=== PATIENT | female | born 1990 ===

== ENCOUNTER 2019-07-07 07:05 | Day surgery (SDC) | payer OTHER ==
--- NOTE | 2019-07-05 22:17 | Pre-Procedure Note/Attestation ---
Pre-Procedure Note/Attestation Complete Prior to Procedure Planned Procedure: right Procedure Narrative: Excise submental tumor with multilayer closure Indications for Procedure Pre-Operative Diagnosis: Right submental tumor Attestation I attest that I discussed the nature of the procedure; its benefits; risks and complications; and alternatives (and the risks and benefits of such alternatives ), prior to the procedure, with the patient (or the patient's legal automobile rental representative). I attest that, if there was a reasonable possibility of needing a blood transfusion, the patient (or the patient's legal automobile rental representative) was given the [facility] standardized written summary, pursuant to the Yoseph Karel Blood Safety Act ([place] Health and Safety Code # 1645, as amended). I attest that I re-evaluated the patient just prior to the surgery and that there has been no change in the patient's H&P. Ryan Jacobs MD Jul 05, 2019 22:17
--- NOTE | 2019-07-05 22:18 | Brief Operative Note ---
Immediate Post Operative Note Operative Note Chief Complaint: Right submental tumor Pre-op Diagnosis: Right submental tumor Procedure: Excise right submental tumor with multilayer closure Post-op Diagnosis: same as pre-op Surgeon: Ryan Jacobs MD Marketing Assistant: none Additional Surgeons: none Anesthesiologist: Dr. Dodge Anesthesia: general Specimen: yes - right submental tumor Complications: none Condition: stable Fluids: D5LR Estimated Blood Loss: minimal Drains: none Packing: none Implant(s) used?: No Ryan Jacobs MD Jul 05, 2019 22:18
--- NOTE | 2019-07-05 22:30 | History and Physical ---
History & Physical (DB) History & Physical History & Physical Chief Complaint: Right submental tumor Reason for Hospitalization: outpt surgery History obtained from: Chart and Patient HPI: Ms. Portillo is a 28 year old female who presents with a growing tumor under her right chin. Past Medical History: unremarkable Social History: Single, no children Past Medical History: Deviated nasal septum, hypertrophied inferior turbinates, Stomach issues. Diagnosis: right submental tumor Past Surgical History: Endoscopy Occupational History: transport manager Smoking status: none Smokeless tobacco: none Alcohol use: social Drug use: none control/ protection: BCP Family History: HTN, acoustic neuroma Allergies:Sufla, Macrolides and Amoxicillin-all rashes Medications: BCP Review of Symptoms: General ROS: no weight loss or fever Psychological ROS: no depression or mood changes, no memory loss Ophthalmic ROS: no visual changes or eye irritation ENT ROS: no nasal congestion, hearing loss, dizziness NECK: MASS SUBQ UNDER CHIN TO RIGHT. Allergy and Immunology ROS: no allergic symptoms or urticaria Hematological and Lymphatic ROS: no swollen glands, unusual bleeding or bruising Endocrine ROS: no polyuria, polydipsia, weight changes, temperature intolerance Respiratory ROS: no cough, shortness of breath, or wheezing Cardiovascular ROS: no chest pain or dyspnea on exertion Gastrointestinal ROS: no abdominal pain, change in bowel habits, or black or bloody stools Musculoskeletal ROS: no myalgias or arthralgias Neurological ROS: no TIA or stroke symptoms Dermatological ROS: no new or changing skin lesions, rashes or pruritis Physical Exam Vitals: BP 120/80, HR 75, RR12 Intake/Output Summary (Last 24 hours) NPO SINCE MD. General appearance: alert, cooperative, no distress, appears stated age Head: Normocephalic, without obvious abnormality, atraumatic Eyes: conjunctivae/corneas clear. PERRL, EOM's intact. Throat: Lips, mucosa, and tongue normal. Teeth and gums normal Neck: supple, symmetrical, trachea midline, no adenopathy, thyroid: not enlarged, symmetric, no tenderness/mass/nodules, no carotid bruit and no JVD MASS SUBQ UNDER CHIN TO RIGHT 5 CM. Lungs: clear to auscultation bilaterally Heart: regular rate and rhythm, S1, S2 normal, no murmur, click, rub or gallop Abdomen: soft, non-tender. Bowel sounds normal. No masses, no organomegaly Extremities: extremities normal, atraumatic, no cyanosis or edema Pulses: 2+ and symmetric Skin: Skin color, texture, turgor normal. No rashes or lesions Neurologic: Grossly normal Laboratories: Urine test pending AM of surgery. Imaging and ancillary data: none Assessment/Problem List: RIGHT SUBMANDIBULAR SKIN TUMOR 5 CM Plan: EXCISE RIGHT SUBMENTAL TUMOR DVT Prophylaxis: scd Code status: full Hospital Classification declaration: Based on this initial evaluation, and depending on the patient's clinical course, I anticipate that this patient will NOT require hospitalization. Disposition: Once the patient is stable to leave the hospital, I anticipate the patient will likely be discharged to the following environment I spent 70 minutes on this patient's case, and minutes was dedicated to counseling and/or care coordination. Case was discussed with Time of note may not reflect time of encounter. Ryan Jacobs MD Jul 05, 2019 22:30
--- NOTE | 2019-07-05 22:35 | Discharge Instructions ---
Discharge Instructions Discharge Instructions Follow up with: 07/08/19 IN HIS OFFICE, PT HAS APPT. ALREADY Diet: regular Resume Normal Activity?: No Activity: light activity Pneumonia Vaccine: pt refused vaccine Influenza Vaccine (May to Oct): pt refused vaccine Follow Up Orders Pt has printed instructions which were reviewed and given to her last week during her pre op visit. Return to Work/School on: Jul 21, 2019 For Congestive Heart Failure Reminder Report to your physician any weight gain of 5 pounds or more in one week. Ryan Jacobs MD Jul 05, 2019 22:35
[2019-07-07] VITALS (9 sets, daily range): BP systolic 100–120; BP diastolic 58–83
[~2019-07-07] VITALS: Ht 170.2 cm; Wt 70.3 kg
--- NOTE | 2019-07-07 07:38 | Anethesia Preoperative Eval ---
Anesthesia Pre-op PMH/ROS General Date of Evaluation: Jul 07, 2019 Anesthesiologist: Dar ASA Score: ASA 1 Mallampati Score Class I : Soft palate, uvula, fauces, pillars visible Class II: Soft palate, uvula, fauces visible Class III: Soft palate, base of uvula visible Class IV: Only hard plate visible Mallampati Classification: Class I Surgeon: Arlene Diagnosis: Submental tumor Surgical Procedure: Excision submental tumor Anesthesia History: none Family History: no anesthesia problems Allergies: Coded Allergies: AMOXICILLIN (Verified Allergy, Intermediate, Rash, 07/05/19) MACROLIDE ANTIBIOTICS (Verified Allergy, Intermediate, Rash, 07/05/19) SULFA (SULFONAMIDE ANTIBIOTICS) (Verified Allergy, Intermediate, rash, 07/05/19) Medications: see eMAR Patient NPO?: Yes NPO Date: Jul 06, 2019 NPO Time: 21:00 Past Medical History Cardiovascular: Denies: HTN, CAD, CA, valve dz, arrhythmia, other Pulmonary: Denies: asthma, COPD, EMILIANO, other Gastrointestinal/Genitourinary: Denies: GERD, CRI, ESRD, other Neurologic/Psychiatric: Denies: dementia, CVA, depression/anxiety, TIA, other Endocrine: Denies: DM, hypothyroidism, steroids, other HEENT: Denies: cataract (L), cataract (R), glaucoma, [place] (L), [place] (R), other Hematology/Immune: Denies: anemia, DVT, bleeding disorder, other Musculoskeletal/Integumentary: Denies: OA, RA, DJD, DDD, edema, other PSxH Narrative: Denies Anesthesia Pre-op Phys. Exam Physician Exam see chart Constitutional: NAD Cardiovascular: RRR Respiratory: CTA Airway Exam Mallampati Score: Class I MO: full ROM: full Teeth: intact Anesthesia Pre-op A/P Labs see chart Urine Test Test 07/07/19 07:20 Urine HCG, Qualitative Negative (NEGATIVE) Risk Assessment & Plan Assessment: ASA I Plan: MAC Status Change Before Surgery: No Pre-Antibiotics Drug: Clindamycin 600mg Given Within 1 Hr of Incision: Yes Selene Watkins MD Jul 07, 2019 07:38
[2019-07-07] MEDS ORDERED: TRI-LO-SPRINTE1 EACH PO (07:57)
[2019-07-07] MEDS ORDERED: Lidocaine 1% 10mg/ml/EPI 0.01mg/ml 50ml INJ ONE (08:41)
[2019-07-07] MEDS ORDERED: Bupivacaine w/Epi 0.5% 30ml Vial INJ ONE (08:41)
[2019-07-07] MEDS ORDERED: Bacitracin 50000 Units Vial ONE (08:42)
[2019-07-07] MEDS ORDERED: Bacitracin Oint 15gm Tube TOPIC ONE (08:43)
[2019-07-07] MEDS ORDERED: Sterile Water Irrig 1000ml IRRIG ONE (09:00)
[2019-07-07] MEDS ORDERED: Midazolam 2mg/2ml Inj ONE ×2 (09:00→09:12)
[2019-07-07] MEDS ORDERED: Lidocaine 1% MPF 10mg/ml 5ml ONE (09:00)
[2019-07-07] MEDS ORDERED: Propofol 200mg/20ml IV ONE (09:00)
[2019-07-07] MEDS ORDERED: fentaNYL 100 mcg/2 mL IV ONE (09:00)
[2019-07-07] MEDS ORDERED: LR 1000ml ONE (09:00)
[2019-07-07] MEDS ORDERED: NS Irrig 1000ml ONE (09:00)
[2019-07-07] MEDS ORDERED: DiphenhydrAMINE 50mg/ml Inj ONE (09:23)
--- NOTE | 2019-07-07 09:55 | Immediate Post-Op Evaluation ---
Immediate Post-Op Evalulation Immediate Post-Op Evalulation Procedure: Excision submental tumor Date of Evaluation: Jul 07, 2019 Time of Evaluation: 09:56 IV Fluids: 500 Blood Products: 0 Estimated Blood Loss: min Urinary Output: 0 Blood Pressure Systolic: 120 Blood Pressure Diastolic: 64 Pulse Rate: 88 Respiratory Rate: 16 O2 Sat by Pulse Oximetry: 100 Temperature (Fahrenheit): 97 Pain Score (1-10): 0 Nausea: No Vomiting: No Complications 0 Patient Status: awake, reacts, patent, none Hydration Status: adequate Drug: Clindamycin 600mg Given Within 1 Hr of Incision: Yes Selene Watkins MD Jul 07, 2019 09:55
--- NOTE | 2019-07-07 09:56 | 48 Hour Post Anesthesia Eval ---
Post Anesthesia Evaluation Procedure: Excision submental tumor Date of Evaluation: Jul 07, 2019 Airway: patent Nausea: No Vomiting: No Pain Intensity: 0 Hydration Status: adequate Cardiopulmonary Status: at baseline Mental Status/LOC: patient returned to baseline Post-Anesthesia Complications: 0 Follow-up care needed: ready to discharge Selene Watkins MD Jul 07, 2019 09:56
[2019-07-07] MEDS ORDERED: HYDROmorphone 1mg/ml Carpuject SUBQ PRN (10:00)
[2019-07-07] MEDS ORDERED: Metoclopramide 10mg/2ml Inj IVP PRN (10:00)
[2019-07-07] MEDS ORDERED: HYDROcodone/Acetamin 5/325 tab ORAL PRN (10:00)
--- NOTE | 2019-07-07 15:00 | Operative Note - Dictated ---
DATE OF OPERATION: 07/07/2019 SURGEON: Ryan Jacobs M.D. GLASS DESIGNER: None. ANESTHESIOLOGIST: Dr. Dodge. ANESTHESIA: IV sedation with 10 mL 50:50 mixture 0.5% bupivacaine with 1:200,000 epinephrine and lidocaine 1% with 1:100,000 epinephrine, it injected subcutaneously. INDICATION FOR PROCEDURE: Mass, right submental area, growing over the past few months. PREOPERATIVE DIAGNOSIS: Mass, right submental area, growing over the past few months. POSTOPERATIVE DIAGNOSIS: Mass, right submental area, growing over the past few months. FINDINGS: Appears to be sebaceous cyst, pending final pathology. PROCEDURE: Excision of deep right submental tumor with multilayer closure. TECHNIQUE: The patient prepped and draped in the usual manner via IV sedation. Time-out was performed and injection with the aforementioned lidocaine, bupivacaine, and epinephrine mixture. All agreed as the equipment and procedures to be done. I made an incision approximately an inch long at the bottom of the mass towards the midline on the right side in a premarked area prior to surgery. I dissected down to the mass and then elevated with a small Metzenbaum scissors. Unfortunately, I did venegas the capsule, so sebaceous material came out. I was able to then regain the outside of the cyst and dissect around the cyst and delivered. It was sent for permanent section in formalin. Area was washed with Betadine. I then closed with 4-0 chromic x2. I then had a running 6-0 horizontal mattress Prolene to approximate the epithelial edges. Next, glue and Steri-Strips were placed and then Tegaderm, on top of that a 2 x 2 folded up with another Tegaderm on to hold some pressure. ESTIMATED BLOOD LOSS: 1 mL. COMPLICATIONS: None. DRAINS: None. The patient awake and alert, and stable in the operating room and in the recovery room 15 minutes later. Additionally, the sponge and needle count was correct and all concurred in the room. Ryan Jacobs M.D. : PABLO JOB#: [id number] CC:
== END 2019-07-07 11:00 | disposition home or self-care (01) ==
LOC: SUR 07:05
DX: L72.0 Epidermal cyst (principal); Z88.2 Allergy status to sulfonamides; Z88.0 Allergy status to penicillin
CPT/HCPCS: 11423; 12041; 81025; J1200; J2250; J2704; J3010; J7120; 94003; 94150